=== PATIENT | female | born 1980 | race Caucasian/White ===

== ENCOUNTER 2020-12-31 08:03 | Inpatient (IN) | payer OTHER ==
[~2020-12-31] VITALS: Ht 157.5 cm; Wt 63.5 kg
[2020-12-31] MEDS ORDERED: CLARITIN10 M1 (08:16)
[2021-01-04] MEDS ORDERED: AMOX1TAB5 PO (08:12)
[2021-01-04] MEDS ORDERED: INTESTINEX680 M1 PO (08:12)
== END 2021-01-04 10:49 | disposition home or self-care (01) | DRG 392 ==
LOC: ER 08:03 → SURG 17:20
PROVIDERS: ADMIT Surgery; ATTEND Surgery
PROC: BW21YZZ Computerized Tomography (CT Scan) of Abdomen and Pelvis using Other Contrast (ICD-10-PCS; 2021-01-02)
PROC: 0DJD8ZZ Inspection of Lower Intestinal Tract, Via Natural or Artificial Opening Endoscopic (ICD-10-PCS; principal; 2021-01-03)
DX: K52.89 Other specified noninfective gastroenteritis and colitis (principal); K57.30 Diverticulosis of large intestine without perforation or abscess without bleeding; Z20.822 Contact with and (suspected) exposure to COVID-19; N80.8 Other endometriosis; E80.6 Other disorders of bilirubin metabolism